=== PATIENT | male | born 1970 ===

== ENCOUNTER 2018-12-02 10:54 | Emergency (ER) | payer BC, OTHER ==
[2018-12-02 11:16] VITALS: BP 142/97
--- NOTE | 2018-12-02 11:41 | UC ---
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 Unsure of mechanism of injury. Immedate pain, some swelling afterwards. no numbness, tingling. Feel s shoulder is "popping". Pain worse with abd, flexion. - History of Current Complaint Chief Complaint: UCUpperExtremity Stated Complaint: SHOULDER INJURY Time Seen by Provider: 12/02/18 11:33 Hx Obtained From: Patient ?: No Onset/Duration: Sudden Onset, Lasting Hours Severity Initially: Moderate Severity Currently: Moderate Pain Intensity: 4 Pain Scale Used: 0-10 Numeric Location Of Pain: Is Discrete @ - left shoulder Character: Sharp - with movements, Aching - at rest Aggravating Factor(s): Movement, Lifting, Flexion, Abduction Alleviating Factor(s): Nothing - Allergies/Home Medications Allergies/Adverse Reactions: Allergies Allergy/AdvReac Type Severity Reaction Status Date / Time aspirin Allergy See Comment Verified 12/02/18 11:10 Home Medications: Home Medications Atorvastatin* [Lipitor*] 10 mg PO DAILY 12/02/18 [History Confirmed 12/02/18] amLODIPine TAB* [Norvasc 5 mg TAB*] 5 mg PO DAILY 12/02/18 [History Confirmed ] PMH/Surg Hx/FS Hx/Imm Hx Previously Healthy: Yes - Surgical History Surgical History: None - Family History Known Family History: Positive: Non-Contributory - Social History Occupation: Employed Full-time Alcohol Use: Occasionally Substance Use Type: None Smoking Status (MU): Never Smoked Tobacco Review of Systems All Other Systems Reviewed And Are Negative: Yes Constitutional: Positive: Negative Musculoskeletal: Positive: Arthralgia, Decreased ROM, Myalgia Neurological: Negative: Paresthesia, Numbness Is Patient Immunocompromised?: No Physical Exam Triage Information Reviewed: Yes Appearance: Well-Appearing, Well-Nourished, Pain Distress - none at rest, moderate with shoulder movements Vital Signs: Initial Vital Signs Temp 98.6 F 12/02/18 11:12 Pulse 95 12/02/18 11:12 Resp 22 12/02/18 11:12 BP 142/97 12/02/18 11:12 Pulse Ox 98 12/02/18 11:12 Vital Signs Reviewed: Yes Eyes: Positive: Conjunctiva Clear ENT: Positive: Hearing grossly normal Musculoskeletal: Positive: Strength Intact - = 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 SITLT, NVI right shoudler- neg RC testing, neg biceps, full strength, full ROM Neurological: Positive: Alert, Muscle Tone Normal Psychological Exam: Normal Psychological: Positive: Normal Response To Family Skin Exam: Normal Skin: Positive: Other - no open wounds, sores Upper Extremity Course/Dx - Course Course Of Treatment: [place]oulder X-ray- negative Joint Finisher: Jt Ennis Daniel, ([id number]) Contact Agent: ANA ( [place]) Report Date: 12/02/2018 11:17:00 Report Status: Final ====== Start of Report Content Patient Name: THOMPSON HAYWARD Medical Record#: [id number] Ordering Physician: Leslye RAJAN Acct.#: [id number] : 09/1970 Age: 48 Sex: M Location: [facility] Exam Date: 12/02/18 1117 ADM Status: REG ER Order Information: SHOULDER LEFT 2+ VWS Accession Number : [id number] CPT: 63805 HISTORY: pain, popping sensation with movement . COMPARISONS: None relevant available at the time of dictation. VIEWS: 4, Frontal internal rotation, external rotation, outlet, and axillary views of the left shoulder FINDINGS: BONE DENSITY: Normal. BONES: There is no displaced fracture. JOINTS: There is mild osteoarthritis of the a.c. and glenohumeral joints. ALIGNMENT: There is no dislocation. SOFT TISSUES: Unremarkable. OTHER FINDINGS: None. IMPRESSION: OSTEOARTHRITIS. NO ACUTE OSSEOUS INJURY. IF SYMPTOMS PERSIST, RECOMMEND REPEAT IMAGING. <Electronically signed by tJ Ennis MD in [place] > 12/02/18 1143 Dictated By: Jt Ennis MD Dictated Date/Time: 114 Transcribed Date/Time: 12/02/181141 Copy to: CC:Leslye Jacques MD; Leslye RAJAN; No Primary Care Phys,NOPCP Imaging - [facility] Imaging - [facility] Imaging - [facility] [address] [facility] [address] ph [phone]) ph ([phone]) ph ([phone]) End of Report Content Rotator Cuff Strain Sprain - Follow up with primary physician or orthopedics within 5-7 days - Motrin 600mg every 6 hours or 800mg every 8 hours to decrease swelling, pain - Ice 20 mins on, 20 mins off for next 1-2 days to decrease inflammation - Work note given - GO to Er with numbness, cold fingers, increased pain - SLing as needed for comfort- may remove if symptoms improve. Take arm out of sling several times a day with gentle range of motion exercises as shown - Differential Dx/Diagnosis Differential Diagnosis/HQI/PQRI: Laceration, Strain, Sprain Provider Diagnosis: Rotator cuff (capsule) sprain Discharge ED - Sign-Out/Discharge Documenting (check all that apply): Patient Departure All imaging exams completed and their final reports reviewed: Yes - Discharge Plan Condition: Good Disposition: HOME Patient Education Materials: Rotator Cuff Injury (ED) Forms: *Work Release Referrals: No Primary Care Phys,NOPCP [Primary Care Provider] - [facility] [Outside] Raj Portillo MD [Medical Doctor] - Kartik Heredia MD [Medical Doctor] - (call for appt within 5-7 days ) Additional Instructions: Rotator Cuff Strain Sprain - Follow up with primary physician or orthopedics within 5-7 days - Motrin 600mg every 6 hours or 800mg every 8 hours to decrease swelling, pain - Ice 20 mins on, 20 mins off for next 1-2 days to decrease inflammation - Work note given - GO to Er with numbness, cold fingers, increased pain - SLing as needed for comfort- may remove if symptoms improve. Take arm out of sling several times a day with gentle range of motion exercises as shown - Billing Disposition and Condition Condition: GOOD Disposition: Home
== END 2018-12-02 12:14 | disposition home or self-care (01) ==
LOC: UCEAST 10:54
DX: S43.422A Sprain of left rotator cuff capsule, initial encounter (principal); M19.012 Primary osteoarthritis, left shoulder; Z88.6 Allergy status to analgesic agent; X58.XXXA Exposure to other specified factors, initial encounter; Y92.9 Unspecified place or not applicable
CPT/HCPCS: 99211; G0463